=== PATIENT | female | born 1990 | race Caucasian/White ===

== ENCOUNTER 2018-11-07 16:00 | Emergency (ER) | payer BC ==
[~2018-11-07] VITALS: Ht 165.1 cm; Wt 63.5 kg
[2018-11-07 16:15] VITALS: BP_SYST 132
[2018-11-07 16:52] LABS: BASOPHILS % (AUTO) 0.4 % (0.0-2.0); EOSINOPHILS # (AUTO) 0.2 K/uL (0.0-0.4); EOSINOPHILS % (AUTO) 2.7 % (0.0-4.0); HEMATOCRIT 36.9 % (36-48); HEMOGLOBIN 12.5 g/dL (12.0-16.0); LYMPHOCYTES # (AUTO) 1.3 K/uL (1.0-5.5); LYMPHOCYTES % (AUTO) 20.3 % (20.5-51.5); MEAN CORPUSCULAR HEMOGLOBIN 31 pg (27-31); MEAN CORPUSCULAR HGB CONC 34 % (32-36); MEAN CORPUSCULAR VOLUME 92 fL (79.0-98.0); MONOCYTES # (AUTO) 0.4 K/uL (0.0-1.0); MONOCYTES % (AUTO) 6.2 % (1.7-9.3); NEUTROPHILS # (AUTO) 4.6 K/uL (1.8-7.7); NEUTROPHILS % (AUTO) 70.4 % (40.0-70.0); PLATELET COUNT (AUTO) 229 K/uL (130-430); RED BLOOD CELL COUNT(AUTO) 4.01 MIL/uL (4.2-6.2); RED CELL DISTRIBUTION WIDTH 12.1 % (9.0-15.0); WHITE BLOOD COUNT (AUTO) 6.5 K/uL (4.8-10.8)
--- NOTE | 2018-11-07 17:03 | NUR ---
Patient to ER bed 03 to gown for evaluation. Side rails up.
[2018-11-07 17:04] LABS: CALCIUM 8.4 mg/dL (8.4-11.0); CREATININE 0.62 mg/dL (0.55-1.30); POTASSIUM 3.7 mmol/L (3.5-5.1)
--- NOTE | 2018-11-07 17:05 | NUR ---
Pt brought by self,A&Ox4, pt presents to ER with L lower abdominal cramping , N/V, skin pink and warm, cap refill <3, VSS, respirations even and unlabored. no active vomiting noted.
[2018-11-07 17:12] LABS: INR 0.9 (0.8-1.2); PROTHROMBIN TIME 9.4 SECS (9.5-12.5)
--- NOTE | 2018-11-07 17:20 | NUR ---
Dr Laureano at bedside examining patient.
[2018-11-07 17:26] LABS: ALBUMIN 3.2 g/dL (3.4-4.8); TOTAL BILIRUBIN 0.1 mg/dL (0.0-1.0)
[2018-11-07] MEDS ORDERED: ONDANSETRON 4 MG ODT TAB PO ONE (17:30)
--- NOTE | 2018-11-07 18:00 | NUR ---
Pt off the unit for ultrasound.
[2018-11-07 19:50] VITALS: BP_SYST 132
--- NOTE | 2018-11-07 19:50 | NUR ---
1950 - Patient given written and verbal discharge instructions and verbalizes understanding. ER MD discussed with patient the results and treatment provided. Patient in stable condition. ID arm band removed. Rx of zofran given. Patient educated on pain management and to follow up with PMD. Pain Scale 0. Opportunity for questions provided and answered. Medication side effect fact sheet provided.
== END 2018-11-07 19:50 | disposition home or self-care (01) ==
LOC: SED 16:00
DX: O21.0 Mild hyperemesis gravidarum (principal); R03.0 Elevated blood-pressure reading, without diagnosis of hypertension; Z3A.15 15 weeks gestation of pregnancy
CPT/HCPCS: 36415; 76805; 80053; 81002; 81025; 82150; 83605; 83690; 84702; 84703; 85025; 85610; 85730; 99284; Q0162

== ENCOUNTER 2021-11-27 23:03 | Emergency (ER) | payer BC ==
[~2021-11-27] VITALS: Ht 165.1 cm; Wt 63.5 kg
[2021-11-27 23:40] VITALS: BP_SYST 146
--- NOTE | 2021-11-27 23:43 | NUR ---
Patient triaged and placed in waiting room. VS checked and patient appears in no acute distress at this time. Accompanied by self , awaiting available bed, and MD notified of need for MSE.
--- NOTE | 2021-11-28 | NUR ---
ER in triage examining patient.
[2021-11-28] MEDS ORDERED: NAPR-1172 PO (01:17)
[2021-11-28 01:21] VITALS: BP_SYST 138
--- NOTE | 2021-11-28 01:21 | NUR ---
Patient given written and verbal discharge instructions by Dr Jacobo and verbalizes understanding. ER MD discussed with patient the results and treatment provided. Patient in stable condition. ID arm band removed. Rx of Naproxen given by Dr Jacobo. Patient educated on pain management and to follow up with PMD. Opportunity for questions provided and answered by Dr Jacobo.
== END 2021-11-28 01:21 | disposition home or self-care (01) ==
LOC: SED 23:03
DX: S33.9XXA Sprain of unspecified parts of lumbar spine and pelvis, initial encounter (principal); Z79.899 Other long term (current) drug therapy; W18.39XA Other fall on same level, initial encounter; Y93.89 Activity, other specified; Y92.89 Other specified places as the place of occurrence of the external cause; Y99.8 Other external cause status
CPT/HCPCS: 72110; 81025; 99283